=== PATIENT | female | born 1985 | race Caucasian/White ===

== ENCOUNTER 2024-09-26 00:03 | Emergency (ER) | payer MEDICAID ==
[2024-09-26] MEDS: Albuterol/Ipratropium 3.0-0.5 MG/3 ML Neb Soln NEB ONE (00:57)
[2024-09-26 01:01] LABS: BASOPHILS PERCENT AUTO 0.3 % (0.2-1.5); EOSINOPHILS PERCENT AUTO 0.2 % (0.6-8.1); HEMATOCRIT 45.7 % (34.2-48.2); HEMOGLOBIN 15.4 g/dL (11.4-15.5); LYMPHOCYTES ABSOLUTE AUTO 3.4 x10-3/uL (1.0-4.4); LYMPHOCYTES PERCENT AUTO 31.4 % (18.4-52.1); MEAN CORPUSCULAR HEMOGLOBIN 28.9 pg (23.9-33.9); MEAN CORPUSCULAR HGB CONC 33.7 g/dL (31.9-34.8); MEAN CORPUSCULAR VOLUME 85.8 fL (76.7-100.5); MEAN PLATELET VOLUME 9.3 fL (7.1-12.4); MONOCYTES ABSOLUTE AUTO 0.9 x10-3/uL (0.3-1.0); MONOCYTES PERCENT AUTO 8.1 % (4.4-15.7); NEUTROPHILS ABSOLUTE AUTO 6.4 x10-3/uL (1.5-6.3); PLATELET COUNT,PLT 257 x10(3)uL (151-488); RED BLOOD CELL COUNT 5.32 x10(6)uL (3.60-5.20); RED CELL DISTRIBUTION WIDTH 15.3 % (12.3-16.5); WHITE BLOOD CELL COUNT,WBC 10.7 x10-3/uL (3.0-10.3)
[2024-09-26 01:15] LABS: BLOOD UREA NITROGEN,BUN 7 mg/dL (7-18); BUN/CREATININE RATIO 6.4 (9-20); CALCIUM 9.4 mg/dL (8.6-10.2); CARBON DIOXIDE,CO2 24 mmol/L (21-32); CHLORIDE,CL 105 mmol/L (100-110); CREATININE 1.1 mg/dL (0.55-1.02); EST CRCL DRUG DOSING (CG) 65.45 mL/min; ESTIMATED GFR 65 mL/min (>60); GLUCOSE RANDOM 115 mg/dL (80-116); POTASSIUM,K 3.6 mmol/L (3.5-5.3); SODIUM,NA 143 mmol/L (135-145)
[2024-09-26 01:20] LABS: ALANINE AMINOTRANSFERASE,ALT 29 U/L (12-36); ALKALINE PHOSPHATASE 87 IU/L (56-112); ASPARTATE AMNIOTRANSFERASE,AST 15 IU/L (5-25); BILIRUBIN TOTAL 0.2 mg/dL (0.1-1.3); PROTEIN TOTAL,TP 7.5 g/dL (6.0-8.0)
[2024-09-26 01:21] LABS: BASE EXCESS VENOUS,POC -3 mmol/L (-2 - 3+); PCO2 VENOUS,POC 42 mmHg (41-51); PH VENOUS,POC 7.34 pH Units (7.32-7.43)
[2024-09-26 01:23] LABS: C-REACTIVE PROTEIN 1.64 mg/dL (<0.50)
[2024-09-26 01:25] LABS: TROPONIN I < 4.0 pg/mL (4.0-60.3)
[2024-09-26 01:39] LABS: ALBUMIN 3.8 g/dL (3.5-5.2)
[2024-09-26 01:43] LABS: BILIRUBIN,URINE NEGATIVE (NEGATIVE); GLUCOSE,URINE NORMAL (NORMAL); KETONES,URINE NEGATIVE (NEGATIVE); LEUKOCYTE ESTERASE,URINE NEGATIVE (NEGATIVE); NITRITE,URINE NEGATIVE (NEGATIVE); OCCULT BLOOD,URINE NEGATIVE (NEGATIVE); PROTEIN,URINE NEGATIVE (NEGATIVE); UROBILINOGEN,URINE NORMAL (NEGATIVE)
[2024-09-26 02:08] LABS: APPEARANCE,URINE CLEAR (CLEAR); COLOR,URINE YELLOW (YELLOW)
[2024-09-26 02:15] LABS: SEDIMENTATION RATE MANUAL 13 mm/hr (0-20)
[2024-09-26] MEDS: Sodium Chloride 0.9% 1,000 ML IV ONE (02:34)
[2024-09-26] MEDS: predniSONE 20 MG Tab PO ONE (03:44)
[2024-09-26] MEDS: Doxycycline 100 MG Tab PO ONE (03:44)
== END 2024-09-26 04:05 | disposition home or self-care (01) ==
LOC: FB.ED 00:03
DX: J44.1 Chronic obstructive pulmonary disease with (acute) exacerbation (principal); E86.0 Dehydration; F17.200 Nicotine dependence, unspecified, uncomplicated; Z91.030 Bee allergy status; Z88.1 Allergy status to other antibiotic agents; Z88.0 Allergy status to penicillin; Z88.8 Allergy status to other drugs, medicaments and biological substances; Z79.51 Long term (current) use of inhaled steroids; Z79.84 Long term (current) use of oral hypoglycemic drugs; Z79.899 Other long term (current) drug therapy
CPT/HCPCS: 36415; 71045; 80053; 81003; 83735; 83880; 84484; 85025; 85379; 85651; 86140; 93005; 94640; 96360; 99285; A9270; J7030; J7512; J7620

== ENCOUNTER 2024-10-31 01:58 | Emergency (ER) | payer MEDICAID | END 2024-10-31 02:45 | disposition home or self-care (01) | LOC: FB.ED 01:58 | DX: F31.81 Bipolar II disorder (principal); E66.9 Obesity, unspecified; J44.9 Chronic obstructive pulmonary disease, unspecified; F17.210 Nicotine dependence, cigarettes, uncomplicated; M19.90 Unspecified osteoarthritis, unspecified site; Z79.899 Other long term (current) drug therapy; Z91.030 Bee allergy status; Z88.8 Allergy status to other drugs, medicaments and biological substances; Z88.0 Allergy status to penicillin; Z90.710 Acquired absence of both cervix and uterus; Z68.37 Body mass index [BMI] 37.0-37.9, adult | CPT/HCPCS: 99283; 99284 ==

== ENCOUNTER 2024-12-06 12:08 | Emergency (ER) | payer MEDICAID ==
[2024-12-06 13:19] LABS: BASOPHILS ABSOLUTE AUTO 0.1 x10-3/uL (0.0-0.1); BASOPHILS PERCENT AUTO 0.8 % (0.2-1.5); EOSINOPHILS ABSOLUTE AUTO 0.0 x10-3/uL (0.0-0.8); EOSINOPHILS PERCENT AUTO 0.3 % (0.6-8.1); LYMPHOCYTES ABSOLUTE AUTO 2.6 x10-3/uL (1.0-4.4); LYMPHOCYTES PERCENT AUTO 24.3 % (18.4-52.1); MEAN PLATELET VOLUME 9.7 fL (7.1-12.4); MONOCYTES ABSOLUTE AUTO 0.8 x10-3/uL (0.3-1.0); MONOCYTES PERCENT AUTO 7.1 % (4.4-15.7); NEUTROPHILS ABSOLUTE AUTO 7.2 x10-3/uL (1.5-6.3); NEUTROPHILS PERCENT AUTO 67.5 % (30.8-76.2); PLATELET COUNT,PLT 242 x10(3)uL (151-488); RED BLOOD CELL COUNT 5.29 x10(6)uL (3.60-5.20); RED CELL DISTRIBUTION WIDTH 15.8 % (12.3-16.5); WHITE BLOOD CELL COUNT,WBC 10.7 x10-3/uL (3.0-10.3)
[2024-12-06 13:27] LABS: BLOOD UREA NITROGEN,BUN 9 mg/dL (7-18); CARBON DIOXIDE,CO2 25 mmol/L (21-32); CHLORIDE,CL 101 mmol/L (100-110); CREATININE 1.2 mg/dL (0.55-1.02); EST CRCL DRUG DOSING (CG) 60.00 mL/min; ESTIMATED GFR 58 mL/min (>60); GLUCOSE RANDOM 155 mg/dL (80-116); POTASSIUM,K 3.8 mmol/L (3.5-5.3); SODIUM,NA 139 mmol/L (135-145)
[2024-12-06 13:32] LABS: A/G RATIO 1.0; ALANINE AMINOTRANSFERASE,ALT 18 U/L (12-36); ASPARTATE AMNIOTRANSFERASE,AST 15 IU/L (5-25); BILIRUBIN TOTAL 0.5 mg/dL (0.1-1.3); PROTEIN TOTAL,TP 7.5 g/dL (6.0-8.0)
[2024-12-06 13:48] LABS: AMPHETAMINES SCREEN, URINE NEGATIVE (NEGATIVE); BUPRENORPHINE SCREEN,URINE NEGATIVE (NEGATIVE); METHADONE SCREEN, URINE NEGATIVE (NEGATIVE); METHAMPHETAMINE SCREEN, URINE NEGATIVE (NEGATIVE); OXYCODONE SCREEN,URINE NEGATIVE (NEGATIVE)
[2024-12-06 13:51] LABS: TSH ULTRASENSITIVE 2.07 IU/mL (0.36-3.74)
[2024-12-06 14:18] LABS: ETHANOL BLOOD MEDICAL < 0.03 % (<0.03)
[2024-12-07 19:58] LABS: THYROXINE FREE 0.7 ng/dL (0.9-1.7)
== END 2024-12-06 14:38 | disposition home or self-care (01) ==
LOC: FB.ED 12:08
DX: R45.851 Suicidal ideations (principal); J44.9 Chronic obstructive pulmonary disease, unspecified; E66.9 Obesity, unspecified; F17.210 Nicotine dependence, cigarettes, uncomplicated; Z79.84 Long term (current) use of oral hypoglycemic drugs; Z79.899 Other long term (current) drug therapy; Z91.030 Bee allergy status; Z88.0 Allergy status to penicillin; Z88.1 Allergy status to other antibiotic agents; Z88.8 Allergy status to other drugs, medicaments and biological substances; Z68.38 Body mass index [BMI] 38.0-38.9, adult
CPT/HCPCS: 36415; 80053; 80143; 80179; 80307; 81025; 84439; 84443; 85025; 99285

== ENCOUNTER 2025-03-11 20:44 | Emergency (ER) | payer MEDICAID ==
[2025-03-11] MEDS: methylPREDNISolone Sodium Succinate 125 MG/2 ML SDV IM ONE (21:03)
== END 2025-03-11 22:15 | disposition home or self-care (01) ==
LOC: FB.ED 20:44
DX: J44.1 Chronic obstructive pulmonary disease with (acute) exacerbation (principal); E66.9 Obesity, unspecified; Z91.030 Bee allergy status; Z88.0 Allergy status to penicillin; Z88.1 Allergy status to other antibiotic agents; Z88.8 Allergy status to other drugs, medicaments and biological substances; Z79.899 Other long term (current) drug therapy; Z90.49 Acquired absence of other specified parts of digestive tract; Z90.710 Acquired absence of both cervix and uterus
CPT/HCPCS: 96372; 99284; J2919; J7620; A9270-GY

== ENCOUNTER 2025-03-14 18:18 | Emergency (ER) | payer MEDICAID ==
[2025-03-14 19:48] LABS: MEAN PLATELET VOLUME 9.5 fL (7.1-12.4); PLATELET COUNT,PLT 253 x10(3)uL (151-488); RED BLOOD CELL COUNT 5.38 x10(6)uL (3.60-5.20); RED CELL DISTRIBUTION WIDTH 15.4 % (12.3-16.5); WHITE BLOOD CELL COUNT,WBC 15.1 x10-3/uL (3.0-10.3)
[2025-03-14 19:58] LABS: PRO B-TYPE NATRIUR PEPT,BNPPRO 49 pg/mL (<=125)
[2025-03-14] MEDS: Sodium Chloride 0.9% 10 ML Syringe FLUSH PRN (20:12)
[2025-03-14] MEDS: Albuterol 0.083% 2.5 MG/3 ML Neb Soln NEB ONE (20:12)
[2025-03-14 20:14] LABS: BLOOD UREA NITROGEN,BUN 11 mg/dL (7-18); CARBON DIOXIDE,CO2 24 mmol/L (21-32); CHLORIDE,CL 103 mmol/L (100-110); CREATININE 1.1 mg/dL (0.55-1.02); ESTIMATED GFR 65 mL/min (>60); GLUCOSE RANDOM 160 mg/dL (80-116); POTASSIUM,K 4.1 mmol/L (3.5-5.3); SODIUM,NA 141 mmol/L (135-145)
[2025-03-14 20:16] LABS: BASE EXCESS VENOUS,POC -4 mmol/L (-2 - 3+); PCO2 VENOUS,POC 39 mmHg (41-51); PH VENOUS,POC 7.35 pH Units (7.32-7.43)
[2025-03-14] MEDS: methylPREDNISolone Sodium Succinate 125 MG/2 ML SDV IVPUSH ONE (20:16)
[2025-03-14 20:19] LABS: A/G RATIO 1.0; ALANINE AMINOTRANSFERASE,ALT 47 U/L (12-36); ASPARTATE AMNIOTRANSFERASE,AST 43 IU/L (5-25); BILIRUBIN TOTAL 0.4 mg/dL (0.1-1.3); PROTEIN TOTAL,TP 8.3 g/dL (6.0-8.0)
[2025-03-14] MEDS: LORazepam 2 MG/ML SDV IVPUSH ONE (20:54)
[2025-03-14 21:25] LABS: GLUCOSE,URINE NORMAL (NORMAL); OCCULT BLOOD,URINE MODERATE (NEGATIVE)
[2025-03-14 21:26] LABS: BAND PERCENT MAN 3 % (0-6); LYMPHOCYTES PERCENT MAN 10 % (13-37); MONOCYTES PERCENT MAN 5 % (4-12); SEG NEUTROPHILS PERCENT MAN 82 % (46-82)
[2025-03-14 21:42] LABS: APPEARANCE,URINE CLEAR (CLEAR)
[2025-03-14 21:43] LABS: SQUAMOUS EPITHELIAL CELLS,UR OCCASIONAL (NS,R,O)
[2025-03-15 00:05] LABS: BASE EXCESS VENOUS,POC -4 mmol/L (-2 - 3+); PCO2 VENOUS,POC 36 mmHg (41-51); PH VENOUS,POC 7.38 pH Units (7.32-7.43)
[2025-03-15 01:58] LABS: BASE EXCESS VENOUS,POC -3 mmol/L (-2 - 3+); PCO2 VENOUS,POC 36 mmHg (41-51); PH VENOUS,POC 7.40 pH Units (7.32-7.43)
[2025-03-15] MEDS: Albuterol 0.083% 2.5 MG/3 ML Neb Soln NEB ONE (04:18)
[2025-03-15] MEDS ORDERED: Naloxone 0.4 MG/ML SDV IVPUSH PRN (04:31)
[2025-03-15] MEDS: Ondansetron 4 MG/2 ML SDV IVPUSH ONE (04:44)
[2025-03-15] MEDS: VANCOmycin 2 GM/400 ML 2 GM in Premix Bag 1 BAG IV ONE (07:04)
== END 2025-03-15 06:45 ==
LOC: FB.ED 18:18
DX: A41.9 Sepsis, unspecified organism (principal); R65.20 Severe sepsis without septic shock; J96.01 Acute respiratory failure with hypoxia; J44.1 Chronic obstructive pulmonary disease with (acute) exacerbation; J44.0 Chronic obstructive pulmonary disease with (acute) lower respiratory infection; J18.9 Pneumonia, unspecified organism; J10.1 Influenza due to other identified influenza virus with other respiratory manifestations; F17.200 Nicotine dependence, unspecified, uncomplicated; E86.0 Dehydration; E66.9 Obesity, unspecified; Z91.030 Bee allergy status; Z88.8 Allergy status to other drugs, medicaments and biological substances; Z88.1 Allergy status to other antibiotic agents; Z88.0 Allergy status to penicillin; Z79.899 Other long term (current) drug therapy; Z79.84 Long term (current) use of oral hypoglycemic drugs; Z90.49 Acquired absence of other specified parts of digestive tract; Z90.89 Acquired absence of other organs
CPT/HCPCS: 36415; 71046; 80053; 81001; 83605; 83735; 83880; 84484; 85025; 85379; 86140; 87040; 93005; 93010; 94660; 96361; 96365; 96366; 96375; 96376; 99285; A9270; J0696; J2060; J2270; J2405; J2919; J3360; J3375; J7030; J7613; J7620; 82803